=== PATIENT | female | born 1975 | race American Indian/Alaskan Native ===

== ENCOUNTER 2021-07-29 06:02 | Day surgery (SDC) | payer OTHER ==
[~2021-07-29 06:02] MED LIST: ACETAMINOPHEN 500 MG TAB PO SCH; LACTATED RINGERS 1,000 ML IV SCH; MIDAZOLAM 2 MG/2 ML INJ IV NR; SCOPOLAMINE TRANSDERMAL PATCH 72 HR TD NR
[2021-07-29] MEDS ORDERED: BACTERIOSTATIC SODIUM CHLORIDE 0.9% 30 ML VIAL INFILTRATI ONE (07:05)
[2021-07-29] MEDS ORDERED: HYDROcodone/ACETAMINOPHEN 5-325 MG TAB PO PRN (07:33)
[2021-07-29] MEDS ORDERED: ONDANSETRON 4 MG/2 ML INJ IV PRN (07:33)
[2021-07-29] MEDS ORDERED: HYDROmorphone 0.5 MG/0.5 ML INJ IV PRN (07:33)
--- NOTE | 2021-07-29 07:33 | Anesthesia Day of Surgery ---
Anesthesia Day of Surgery - Day of Surgery Patient Examined: Yes Patient H&P Reviewed: Yes Patient is NPO: Yes Beta Blockers: Yes (metoprolol today AM)
--- NOTE | 2021-07-29 07:33 | Anesthesia Consultation ---
Anesthesia Consult and Med Hx Date of service: 07/29/21 - Airway Anesthetic Teeth Evaluation: Good ROM Head & Neck: Adequate Mental/Hyoid Distance: Adequate Mallampati Class: Class III Intubation Access Assessment: Possibly Difficult - Pulmonary Exam CTA: Yes - Cardiac Exam Cardiac Exam: RRR - Pre-Operative Health Status ASA Pre-Surgery Classification: ASA3 Proposed Anesthetic Plan: General - Pulmonary Hx Asthma: Yes (last INH 1 yr ago) Hx Respiratory Symptoms: No - Cardiovascular System Hx Hypertension: Yes (took metoprolol this morning) Hx Heart Attack/AMI: No (hx CHF 6-7yrs ago; resolved. No signs/symptoms decompensation today) Hx Cardia Arrhythmia: Yes (hx bigeminy) Hx Pacemaker: No Hx Internal Defibrillator: No - Central Nervous System CVA: No - Endocrine Hx Renal Disease: No Hx Liver Disease: No Hx Insulin Dependent Diabetes: No Hx Non-Insulin Dependent Diabetes: No Hx Thyroid Disease: No - Hematic Hx Anemia: Yes - Other Systems Hx Obesity: Yes (BMI 33) - Additional Comments Anesthesia Medical History Comments: No hx anesthetic complications.
[2021-07-29] MEDS ORDERED: LIDOCAINE MPF (2%) 20 MG/1 ML VIAL 5 ML ONE (07:34)
[2021-07-29] MEDS ORDERED: propofoL 200 MG/20 ML VIAL IV ONE (07:35)
[2021-07-29] MEDS ORDERED: fentaNYL 100 MCG/2 ML INJ ONE (07:35)
[2021-07-29 07:36] LABS: Hematocrit 38.7 % (30.3-42.9); Hemoglobin 13.3 gm/dl (10.1-14.3); Mean Corpuscular HGB Conc 34 % (30-34); Mean Corpuscular Volume 81 fl (79-97); Platelet Count 280 K/mm3 (140-440); Red Blood Count 4.76 M/mm3 (3.65-5.03); Red Cell Distribution Width 15.3 % (13.2-15.2)
--- NOTE | 2021-07-29 07:37 | Short Stay Summary ---
Short Stay Documentation Date of service: 07/29/21 Narrative H&P: 45y/o with dysfunctional uterine bleeding. Patient has a history of uterine fibroids. She is s/p UFE but has continued to have abnormal bleeding. The patient has failed medical management. - History Principal diagnosis: Dysfunctional uterine bleeding Past Medical History: hypertension, other (asthma) Past Surgical History: , Other (UFE) Social history: single - Allergies and Medications Current Medications: Allergies amoxicillin Allergy (Verified 07/22/21 14:19) Unknown Home Medications Medication Instructions Recorded Confirmed Last Taken Type Albuterol Mdi (or & Nicu Only) 07/22/21 Unknown History Metoprolol [Lopressor] 25 mg PO DAILY 07/22/21 07/22/21 07/22/21 History Active Medications Acetaminophen (Acetaminophen 500 Mg Tab) 1,000 mg PO PREOP ANJELICA Hydrocodone Bitart/Acetaminophen (Hydrocodone/Acetaminophen 5-325 Mg Tab) 2 each PO ONCE PRN PRN Reason: Pain, Moderate (4-6) Hydromorphone HCl (Hydromorphone 0.5 Mg/0.5 Ml Inj) 0.5 mg IV Q10MIN PRN PRN Reason: Pain , Severe (7-10) Lactated Ringer's (Lactated Ringers) 1,000 mls @ 100 mls/hr IV DIRECT ANJELICA Stop: 07/29/21 23:59 Midazolam HCl (Midazolam 2 Mg/2 Ml Inj) 2 mg IV PREOP NR Stop: 07/29/21 19:00 Ondansetron HCl (Ondansetron 4 Mg/2 Ml Inj) 4 mg IV ONCE PRN PRN Reason: Nausea And Vomiting Scopolamine (Scopolamine Transdermal Patch 72 Hr) 1 each TD PREOP NR Stop: 07/29/21 19:00 - Physical exam General appearance: no acute distress Integumentary: no rash HEENT: Atraumatic Lungs: Clear to auscultation Breasts: deferred Heart: Regular rate Gastrointestinal: normal Female Genitourinary: deferred Rectal Exam: deferred Extremities: no ischemia Neurological: Normal gait - Brief post op/procedure progress note Date of procedure: 07/29/21 Pre-op diagnosis: Dysfunctional uterine bleeding Post-op diagnosis: same Procedure: Hysteroscopy Dilatation and curettage Failed NovaSure attempt Anesthesia: GETA Surgeon: ALBA SNOWDEN Estimated blood loss: minimal Pathology: list (Endometrial curettings) Specimen disposition: to lab Condition: stable - Hospital course Hospital course: The patient was admitted the day of surgery underwent a hysteroscopy dilatation and curettage. Please see operative note for details of surgery. Postoperative course was uneventful. - Disposition Condition at discharge: Good Disposition: 01 HOME / SELF CARE / HOMELESS Short Stay Discharge Plan Activity: other (Pelvic rest for 1 week) Diet: regular Additional Instructions: Schedule follow-up with Dr. Snowden in 2-week
[2021-07-29] MEDS ORDERED: dexAMETHasone 20 MG/5 ML VIAL ONE (08:45)
[2021-07-29] MEDS ORDERED: PHENYLEPHRINE/NS 1,000 MCG/10 ML SYRINGE (OR USE) IV ONE (08:58)
[2021-07-29] MEDS ORDERED: SODIUM CHLORIDE 0.9% IRRIG SOLN 3000 ML IR ONE (09:00)
--- NOTE | 2021-07-29 09:08 | Operative Report ---
Operative Report Operative Report: Date of procedure: July 29, 2021 Pre-operative diagnosis: Dysfunctional uterine bleeding Post-operative diagnosis: Same as above Procedure name(s): Hysteroscopy; dilatation and curettage; failed endometrial ablation attempt Surgeon: Leah Rinaldi M.D. Sap Technical Developer: None Anesthesia: General tracheal anesthesia Findings elongated cervical canal with a constricted endometrial cavity. The ostia could not clearly be identified in the cavity. Indication: 45-year-old -0-0-3 with a history of dysfunctional uterine bleeding Procedure The patient was taken to the operating room and given general tracheal anesthesia without complication. The patient was prepped and draped in a normal sterile fashion. A bivalve speculum was placed in the patient's vagina single- tooth tenaculums placed on the anterior lip of the cervix. The cervical os was dilated with graduated dilators. A uterine sound was inserted. The hysteroscope was then placed. Insufflation of the uterine cavity was performed with normal saline. Gen. survey of the uterine cavity revealed elongated cervical canal. The uterine cavity was contracted and small. Cavity was consistent with synechiae. The ostia could not be identified. The hysteroscope was then removed. A sharp curettage of the endometrial surface was performed. The NovaSure device was then inserted. An attempt was made to open and deployed the device however the intrauterine cavity with was too small to engage the device. Multiple attempts were made in order to achieve an adequate cavity width without success. The decision was made to abort the procedure. The patient sustained a cervical laceration from the single-tooth tenaculum. A 3-0 Vicryl suture was placed in a [id number] stitch for hemostasis on the cervix. The remainder of the vaginal instruments were then removed atraumatically. The patient was then successfully extubated taken to the recovery room. All sponge laps and needle counts were correct 2. Pathology specimen consisted of endometrial curettings.
[2021-07-29 10:24] VITALS: BP 122/92
--- NOTE | 2021-07-29 13:54 | Post Anesthesia Evaluation ---
- Post Anesthesia Evaluation Patient Participated: Yes Airway Patent: Yes Stable Respiratory Function: Yes Nausea/Vomiting: No Temp > 96.8F: Yes Pain Manageable: Yes Adequeate Hydration: Yes Anesthesia Complications: No
== END 2021-07-29 11:00 | disposition home or self-care (01) ==
LOC: OR 06:02
PROVIDERS: ATTEND Obstetrics & Gynecology
DX: N93.8 Other specified abnormal uterine and vaginal bleeding (principal); I42.9 Cardiomyopathy, unspecified; I11.0 Hypertensive heart disease with heart failure; I50.9 Heart failure, unspecified; J45.909 Unspecified asthma, uncomplicated; E66.9 Obesity, unspecified; F41.9 Anxiety disorder, unspecified; D64.9 Anemia, unspecified; Z88.6 Allergy status to analgesic agent; Z79.899 Other long term (current) drug therapy; Z68.33 Body mass index [BMI] 33.0-33.9, adult; Z98.891 History of uterine scar from previous surgery; Z98.890 Other specified postprocedural states
CPT/HCPCS: 36415; 58563; 81025; 85027; 88305; J1100; J2250; J2370; J2405; J2704; J3010; J3490; J7120